=== PATIENT | male | born 1950 | race Caucasian/White ===

== ENCOUNTER 2017-10-06 13:44 | Emergency (ER) | payer MEDICARE, OTHER ==
[2017-10-06] MEDS ORDERED: Sodium Chloride 0.9% 1,000 ML IV ONE (14:42)
[2017-10-06] MEDS ORDERED: Ondansetron 4 MG/2 ML SDV IVPUSH ONE (14:42)
[2017-10-06] MEDS ORDERED: MVI, Adult with Vitamin K 10 ML, Thiamine 100 MG, Folic Acid 1 MG in Sodium Chloride 0.... IV ONE ×4 (14:48)
[2017-10-06] MEDS ORDERED: Pantoprazole 40 MG Vial IVPUSH ONE (14:48)
--- NOTE | 2017-10-06 14:48 | EDM.PDOC ---
ED HPI GENERAL MEDICAL PROBLEM - General Chief Complaint: General Stated Complaint: NOT EATING WELL Time Seen by Provider: 10/06/17 14:43 Source of Information: Reports: Patient - History of Present Illness INITIAL COMMENTS - FREE TEXT/NARRATIVE: HISTORY AND PHYSICAL: History of present illness: [Patient and his present with complaint of not eating well, he has vomited a couple of times in the last 24 hours he is chronic alcoholic is been through treatment 4 times a minute and is seen through [facility] in [place]. He does not desire detox now He has no specific complaint himself however his states he is not eating well he continues to drink a half a liter of alcohol daily sometimes more no fever no current nausea vomiting diarrhea constipation chest pain shortness breath headache dizziness or palpitation no bowel or urine symptoms He has had some stomach pain likely alcohol gastritis on omeprazole for this ] Review of systems: As per history of present illness and below otherwise all systems reviewed and negative. Past medical history: As per history of present illness and as reviewed below otherwise noncontributory. Surgical history: As per history of present illness and as reviewed below otherwise noncontributory. Social history: No reported history of drug or alcohol abuse. Family history: As per history of present illness and as reviewed below otherwise noncontributory. Physical exam: HEENT: Atraumatic, normocephalic, pupils reactive, negative for conjunctival pallor or scleral icterus, mucous membranes moist, throat clear, neck supple, nontender, trachea midline. Lungs: Clear to auscultation, breath sounds equal bilaterally, chest nontender. Heart: S1S2, regular, negative for clicks, rubs, or JVD. Abdomen: Soft, nondistended, nontender. Negative for masses or hepatosplenomegaly. Negative for costovertebral tenderness. Pelvis: Stable nontender. Genitourinary: Deferred. Rectal: No mass scar or lesion guaiac negative Extremities: Atraumatic, negative for cords or calf pain. Neurovascular unremarkable. Neuro: Awake, alert, oriented. Cranial nerves II through XII unremarkable. Cerebellum unremarkable. Motor and sensory unremarkable throughout. Exam nonfocal. Diagnostics: []Lab as below EKG Guaiac-negative Therapeutics: [An Endobag Protonix] Impression: []Alcohol use abuse and dependence Definitive disposition and diagnosis as appropriate pending reevaluation and review of above. - Related Data Allergies Allergy/AdvReac Type Severity Reaction Status Date / Time No Known Allergies Allergy Verified 10/06/17 14:14 Home Meds: Home Meds Aspirin [[place] Aspirin] 81 mg PO DAILY 06/25/16 [History] Ferrous Sulfate [Iron] 325 mg PO TID 06/25/16 [History] Fish Oil/[place]-3 Fatty Acids [Fish Oil 1,000 MG] 1,000 mg PO DAILY 06/25/16 [ History] Flaxseed Oil [Flax Oil] 1,000 mg PO DAILY 06/25/16 [History] Lisinopril 10 mg PO DAILY 06/25/16 [History] Lutein 20 mg PO DAILY 06/25/16 [History] Melatonin 10 mg PO BEDTIME 06/25/16 [History] Omeprazole 20 mg PO BID 06/25/16 [History] Potassium Chloride 1 tab PO DAILY 06/25/16 [History] Tiotropium [Spiriva HandiHaler] 1 inh INH ASDIRECTED 06/25/16 [History] Vitamin B Complex 1 tab PO DAILY 06/25/16 [History] traZODone HCl [Trazodone HCl] 50 mg PO ACBREAKFAST 06/25/16 [History] traZODone HCl [Trazodone HCl] 100 mg PO BEDTIME 06/25/16 [History] Past Medical History HEENT History: Reports: None Cardiovascular History: Reports: High Cholesterol, Hypertension Respiratory History: Reports: COPD Gastrointestinal History: Reports: Chronic Diarrhea, GERD Genitourinary History: Reports: None Musculoskeletal History: Reports: None Neurological History: Reports: None Psychiatric History: Reports: None Endocrine/Metabolic History: Reports: None Hematologic History: Reports: Iron Deficiency Immunologic History: Reports: None Oncologic (Cancer) History: Reports: None Dermatologic History: Reports: None - Past Surgical History Head Surgeries/Procedures: Reports: None HEENT Surgical History: Reports: None Male Surgical History: Reports: None Social & Family History - Tobacco Use Smoking Status *Q: Former Smoker Used Tobacco, but Quit: Yes Month Tobacco Last Used: 2011 - Alcohol Use Days Per Week of Alcohol Use: 7 Number of Drinks Per Day: 7 Total Drinks Per Week: 49 - Recreational Drug Use Recreational Drug Use: No Drug Use in Last 12 Months: No ED ROS GENERAL - Review of Systems Review Of Systems: ROS reveals no pertinent complaints other than HPI. ED EXAM, GENERAL - Physical Exam Exam: See Below Course - Vital Signs Last Recorded V/S: Last Vital Signs Temp 97.4 F 10/06/17 16:11 Pulse 82 10/06/17 16:11 Resp 18 10/06/17 16:11 BP 110/74 10/06/17 16:11 Pulse Ox 97 10/06/17 16:11 - Orders/Labs/Meds Orders: Active Orders 24 hr Category Date Time Status Abdomen 2V AP Flat Upright [CR] Stat Exams 10/06/17 16:12 Ordered Guaiac [OCCULT BLOOD DIAGNOSTIC] [OP] Stat Lab 10/06/17 15:06 Ordered UA W/MICROSCOPIC [URIN] Stat Lab 10/06/17 14:42 Uncollected Labs: Laboratory Tests 10/06/17 10/06/17 Range/Units 14:52 14:52 WBC 9.22 (4.0-11.0) K/uL RBC 4.38 L (4.50-5.90) M/uL Hgb 15.4 (13.0-17.0) g/dL Hct 43.3 (38.0-50.0) % MCV 98.9 H (80.0-98.0) fL MCH 35.2 H (27.0-32.0) pg MCHC 35.6 (31.0-37.0) g/dL RDW Std Deviation 50.0 (28.0-62.0) fl RDW Coeff of Sandra 14 (11.0-15.0) % Plt Count 181 (150-400) K/uL MPV 9.50 (7.40-12.00) fL Neut % (Auto) 81.9 H (48.0-80.0) % Lymph % (Auto) 9.1 L (16.0-40.0) % [place] % (Auto) 8.6 (0.0-15.0) % Eos % (Auto) 0.0 (0.0-7.0) % Baso % (Auto) 0.4 (0.0-1.5) % Neut # (Auto) 7.6 H (1.4-5.7) K/uL Lymph # (Auto) 0.8 (0.6-2.4) K/uL [place] # (Auto) 0.8 (0.0-0.8) K/uL Eos # (Auto) 0.0 (0.0-0.7) K/uL Baso # (Auto) 0.0 (0.0-0.1) K/uL Nucleated RBC % 0.0 /100WBC Nucleated RBCs # 0 K/uL Sodium 136 (136-146) mmol/L Potassium 3.9 (3.5-5.1) mmol/L Chloride 101 (98-110) mmol/L Carbon Dioxide 12 L (21-31) mmol/L BUN 18 (6.0-23.0) mg/dL Creatinine 0.8 (0.6-1.5) mg/dL Est Cr Clr Drug Dosing 88.38 mL/min Estimated GFR (MDRD) > 60.0 ml/min Glucose 96 (60-110) mg/dL Calcium 8.6 L (8.8-10.8) mg/dL Total Bilirubin 1.2 (0.1-1.5) mg/dL AST 103 H (5-40) IU/L ALT 135 H (8-54) IU/L Alkaline Phosphatase 92 (40-150) Troponin I < 0.10 (0.0-0.29) NG/ML Total Protein 7.0 (6.0-8.0) g/dL Albumin 3.7 (3.4-4.8) g/dL Globulin 3.3 (2.0-3.5) g/dL Albumin/Globulin Ratio 1.1 L (1.3-2.8) Amylase 42 (10-90) U/L Lipase 88 H (7-80) U/L Ethyl Alcohol 255.5 mg/dL Meds: Medications Discontinued Medications Generic Name Dose Route Start Last Admin Trade Name Freq PRN Reason Stop Dose Admin Sodium Chloride 1,000 mls @ 999 mls/hr 10/06/17 14:42 10/06/17 15:30 Normal Saline IV 10/06/17 15:42 999 mls/hr STAT ONE Administration Multivitamins/Minerals 10 ml/ 1,011.2 mls @ 999 mls/hr 10/06/17 14:48 15:39 Thiamine HCl 100 mg/ Folic IV 10/06/17 15:48 999 mls/hr Acid 1 mg/ Sodium Chloride ONETIME ONE Administration Ondansetron HCl 8 mg 10/06/17 14:42 10/06/17 15:31 Zofran IVPUSH 10/06/17 14:43 8 mg ONETIME ONE Administration Pantoprazole Sodium 80 mg 10/06/17 14:48 10/06/17 15:32 Protonix Iv IVPUSH 10/06/17 14:49 80 mg .BOLUS ONE Administration Departure - Departure Time of Disposition: 16:26 Disposition: Home, Self-Care 01 Condition: Fair Clinical Impression: Alcohol intoxication - Discharge Information Referrals: PCP,None [Primary Care Provider] - Forms: ED Department Discharge Additional Instructions: Alcohol cessation strongly recommended [facility] discussed Follow-up with primary care as needed or in 2 weeks The following information is given to patients seen in the emergency department who are being discharged to home. This information is to outline your options for follow-up care. We provide all patients seen in our emergency department with a follow-up referral. The need for follow-up, as well as the timing and circumstances, are variable depending upon the specifics of your emergency department visit. If you don't have a primary care physician on staff, we will provide you with a referral. We always advise you to contact your personal physician following an emergency department visit to inform them of the circumstance of the visit and for follow-up with them and/or the need for any referrals to a consulting specialist. The emergency department will also refer you to a specialist when appropriate. This referral assures that you have the opportunity for follow-up care with a specialist. All of these measure are taken in an effort to provide you with optimal care, which includes your follow-up. Under all circumstances we always encourage you to contact your private physician who remains a resource for coordinating your care. When calling for follow-up care, please make the office aware that this follow-up is from your recent emergency room visit. If for any reason you are refused follow-up, please contact the [facility] emergency department at and asked to speak to the emergency department charge nurse. - My Orders Last 24 Hours: My Active Orders 10/06/17 14:42 UA W/MICROSCOPIC [URIN] Stat 10/06/17 15:06 Guaiac [OCCULT BLOOD DIAGNOSTIC] [OP] Stat 10/06/17 16:12 Abdomen 2V AP Flat Upright [CR] Stat - Assessment/Plan Last 24 Hours: My Active Orders 10/06/17 14:42 UA W/MICROSCOPIC [URIN] Stat 10/06/17 15:06 Guaiac [OCCULT BLOOD DIAGNOSTIC] [OP] Stat 10/06/17 16:12 Abdomen 2V AP Flat Upright [CR] Stat
[2017-10-06 15:23] LABS: CHLORIDE,CL 101 mmol/L (98-110); SODIUM,NA 136 mmol/L (136-146)
[2017-10-06 19:05] VITALS: BP 125/65
--- NOTE | 2017-10-07 10:03 | CR ---
EXAM DATE: 10/06/17 PATIENT'S AGE: 67 Patient: MONALISA TEE Facility: [place], [place] Site . Site : 1950 Study: XRay Abdomen [id number] 5:54:51 PM Ordering Physician: Andrea Scherer Final Report: Indication: Abdominal pain. Technique: Flat and upright, 3 images. Comparison: None. Findings: Moderate amount stool in the left and rectosigmoid colon. Small bowel gas. No clear evidence of obstruction. No free air or significant abnormal calcification. Impression: Suspected constipation. Dictated by Ruddy Mckeon MD @ Oct 06 2017 6:20PM (Electronic Signature) Report Signed by Proxy. EITAN
== END 2017-10-06 19:05 | disposition home or self-care (01) ==
LOC: MW.ED 13:44
DX: F10.229 Alcohol dependence with intoxication, unspecified (principal); I10 Essential (primary) hypertension; Z79.82 Long term (current) use of aspirin; Z79.899 Other long term (current) drug therapy; Z87.891 Personal history of nicotine dependence
CPT/HCPCS: 36415; 74020; 80053; 81001; 82150; 82272; 83690; 84484; 85025; 96365; 96366; 96375; 99284; C9113; G0480; J2405; J3411; J7040; 99282